=== PATIENT | female | born 1970 | race Caucasian/White ===

== ENCOUNTER → 2018-05-23 | Outpatient (CLI) | payer MEDICARE, MEDICAID ==
--- NOTE | 2018-05-23 21:16 | DIREP ---
PROCEDURE:XRAY FOOT MIN 3 VWS-LT COMPARISON:None. INDICATIONS:CELLULITIS OF THE LEFT LIMB FINDINGS: BONES:Normal. JOINTS:Normal. SOFT TISSUES:Normal. OTHER:No additional findings. CONCLUSION:No periostitis. No soft tissue gas. Dictated by: Chris Hess MD on 05/23/2018 at 09:02 PM
== END | disposition home or self-care (01) ==
LOC: RAD 20:14
PROVIDERS: ATTEND Nurse Practitioner Family
DX: L03.116 Cellulitis of left lower limb (principal); J44.1 Chronic obstructive pulmonary disease with (acute) exacerbation
CPT/HCPCS: 73630-LT

== ENCOUNTER 2019-01-24 18:04 | Emergency (ER) | payer MEDICARE, MEDICAID ==
[~2019-01-24] VITALS: Ht 170.2 cm; Wt 113.4 kg
[2019-01-24 18:30] VITALS: BP 130/61
--- NOTE | 2019-01-24 18:31 | NUR ---
ARRIVAL PATIENT ARRIVED TO ER 8 AMBULATORY ACCOMPANIED BY Flores BOSWELL RN. BEDSIDE MONITORS APPLIED. VITAL SIGNS STABLE. PATIENTS FATHER STATES WORRY OF A NERVOUS BREAKDOWN. PATIENT STATES THAT SHE DRANK 1/2 GALLON OF VODKA TODAY. SHE TOLD HER FATHER THAT SHE HAS SUICIDAL IDEATIONS. WHEN ASKED THE PATIENT STATES SHE DOESNT WANT TO ANWER THE QUESTIONS RIGHT NOW. BED IN LOW LOCKED POSITION SIDE RAILS X2.
--- NOTE | 2019-01-24 18:39 | ER.PDOC ---
General Chief Complaint: Requesting Medical Care Stated Complaint: GEN COMPLAINT Time seen by MD: 18:33 Source: patient Exam Limitations: no limitations History of Present Illness Initial Comments Nervous breakdown Timing/Duration: just prior to arrival Intent: Suicide Severity: moderate Related to: Sigificant Other Associated Symptoms: Depressed Mechanism: Will Not Answer Prior symptoms/Treatment: Similar symptoms previous Allergies: Coded Allergies: No Known Allergies (Unverified , 02/18/16) Home Meds Unable to Obtain Active Prescriptions or Reported Meds Past Medical History Medical History: COPD, other Surgical History: cholecystectomy, LMP (females 10-50): postmenopause Social History Smoking: less than 1 pack/day Alcohol Use: heavy Drug Use: none Reviewed Nursing Reviewed: Vital Signs, Abn. Noted Review of Systems All Other Systems: Reviewed and Negative Physical Exam General Appearance: Anxious EENT: No nystagmus, PERRLA, EOM's intact, NML ENT inspection, Pharynx nml, NML gag reflex Neck: Non-Tender, Full Range of Motion, Supple, Normal Inspection Respiratory: chest non-tender, lungs clear, normal breath sounds, no respiratory distress, no accessory muscle use Gastrointestinal: Normal Bowel Sounds, No Organomegaly, No Pulsatile Mass, Non Tender, Soft Extremities: Non-Tender, Normal Range of Motion, No Evidence of Trauma, No Edema Neurological/Psychiatric: Alert, Normal Mood/Affect, Calm, medical supervisor II-XII NML as Tested, Oriented x 3 Appearance/Memory/Insight: Appropriate Appearance, Appropriate Insight, Neat, No Memory Impairment Behavior/Eye Contact/Speech: Cooperative, Good Eye Contact, Normal Speech Thoughts/Hallucinations: Normal Thought Pattern, No Apparent Hallucination Skin: Normal Color, Warm/Dry Results/Orders Results/Orders Laboratory Tests Test 01/24/19 18:40 01/24/19 18:58 01/25/19 00:43 Urine Collection Type VOID Urine Color YELLOW (YELLOW) Urine Appearance HAZY (CLEAR) Urine Bilirubin NEGATIVE MG/DL (NEGATIVE) Urine Ketones NEGATIVE (NEGATIVE) Urine Specific [place] 1.015 (1.005-1.035) Urine pH 5 (5.0-6.0) Urine Protein 15 mg/dL (NEGATIVE) Urine Urobilinogen NORMAL (NEGATIVE) Urine Nitrate NEGATIVE (NEGATIVE) Urine Leukocyte Esterase NEGATIVE (NEGATIVE) Urine Blood 25 1+ (NEGATIVE) Urine RBC 0-2 RBC/HPF (NONE SEEN) Urine WBC 0-2 WBC/HPF (0-2) Urine Squamous Epithelial Cells MODERATE #/HPF (FEW) Urine Bacteria MODERATE (NONE SEEN) Urine Glucose NORMAL (NEGATIVE) Urine Opiates, Qualitative NEGATIVE ng/mL (CUT-OFF:300) Urine Methadone, Qualitative NEGATIVE ng/mL (CUT-OFF:300) Urine Amphetamine Qualitative POSITIVE ng/mL (CUTOFF:1000) Urine Barbiturates, Qualitative NEGATIVE ng/mL (CUT-OFF:200) Urine Phencyclidine Screen NEGATIVE ng/mL (CUT-OFF:25) Urine MDMA (Ecstasy), Qualitative NEGATIVE ng/mL (CUT-OFF:300) Urine Benzodiazepines Screen POSITIVE ng/mL (CUT-OFF:200) Urine Cocaine Qualitative NEGATIVE ng/mL (CUT-OFF:300) Ur Tetrahydrocannabinol (THC) Scrn NEGATIVE ng/mL (CUT-OFF:50) White Blood Count 4.0 10^3/uL (4.5-11.0) Red Blood Count 4.98 10^6/uL (4.00-5.20) Hemoglobin 16.1 g/dL (12.0-15.0) Hematocrit 49.8 % (36.0-46.0) Mean Corpuscular Volume 100.0 fL (78-100) Mean Corpuscular Hemoglobin 32.3 pg (26-34) Mean Corpuscular Hemoglobin Concent 32.3 g/dL (33-37) Red Cell Distribution Width 14.7 % (11.5-14.5) Platelet Count 124 10^3/uL (150-400) Mean Platelet Volume 8.3 fL (7.8-11.0) Neutrophils (%) (Auto) 52.8 % (41.0-85.0) Lymphocytes (%) (Auto) 35.1 % (24.0-44.0) Monocytes (%) (Auto) 10.0 % (5.0-12.0) Neutrophils # (Auto) 2.1 10^3/uL (1.8-7.7) Lymphocytes # (Auto) 1.4 10^3/uL (1.0-4.8) Monocytes # (Auto) 0.4 10^3/uL (0.3-0.8) Eosinophils % 1.8 % (0.0-5.0) Basophils % 0.3 % (0.0-0.2) Basophils # 0.0 10^3/uL (0.0-0.1) Eosinophil Count 0.1 10^3/uL (0.0-0.2) Sodium Level 142 mmol/L (132-145) Potassium Level 3.8 mmol/L (3.6-5.2) Chloride Level 104.0 mmol/L (96-109) Carbon Dioxide Level 31.5 mmol/L (20.0-32) Anion Gap 10.3 Blood Urea Nitrogen 5 mg/dL (7-18) Creatinine 0.59 mg/dL (0.59-1.40) Estimated GFR () 130.5 (>/=60) BUN/Creatinine Ratio 8.0 Glucose Level 120 mg/dL (70-110) Calcium Level 8.4 mg/dL (8.4-10.5) Total Bilirubin 0.3 mg/dL (0.2-1.0) Aspartate Amino Transf (AST/SGOT) 206 U/L (0-35) Alanine Aminotransferase (ALT/SGPT) 88 U/L (12-78) Alkaline Phosphatase 161 U/L (50-136) Total Creatine Kinase 89 U/L (26-192) Troponin I < 0.02 ng/mL (0.00-0.05) Total Protein 7.7 g/dL (6.4-8.2) Albumin 3.1 g/dL (3.4-5.0) Globulin 4.6 Human Chorionic Gonadotropin, Quant < 5 mIU/mL Salicylates Level < 2.8 mg/dL (2.8-20.0) Acetaminophen Level < 2 ug/mL (10-30) Serum Alcohol 243 mg/dL (-3) 67 mg/dL (-3) Administered Medications Medications (Trade) Dose Ordered Sig/Donta Route PRN Reason Start Time Stop Time Status Last Admin Dose Admin Lorazepam (Ativan) 2 mg STAT STAT PO 01/24/19 18:52 01/24/19 18:54 DC 01/24/19 19:01 Sodium Chloride 1,000 ml @ 1,200 mls/hr Q50M STAT IV 01/24/19 19:47 01/24/19 20:36 DC 01/24/19 20:02 Sodium Chloride 1,000 ml @ 1,200 mls/hr Q50M STAT IV 01/24/19 22:10 01/24/19 22:59 DC 01/24/19 22:13 Albuterol/ Ipratropium (Duoneb 0.5 Mg-3 Mg/3 ml Soln) 3 ml STAT STAT IH 01/24/19 22:18 01/24/19 22:19 DC 01/24/19 22:24 Sodium Chloride 1,000 ml @ 1,200 mls/hr Q50M STAT IV 01/24/19 22:58 01/24/19 23:47 DC 01/24/19 23:38 Albuterol/ Ipratropium (Duoneb 0.5 Mg-3 Mg/3 ml Soln) 3 ml STAT STAT IH 01/25/19 00:37 01/25/19 00:38 DC 01/25/19 01:00 Dexamethasone Sodium Phosphate (Decadron) 4 mg STAT STAT IH 01/25/19 00:37 01/25/19 00:38 DC 01/25/19 01:00 Lorazepam (Ativan) 2 mg STAT STAT IV 01/25/19 02:53 01/25/19 02:54 DC 01/25/19 03:03 Departure Time of Disposition: 03:52 Disposition: 65 XFER TO PSYCH HOSP/UNIT Impression: Primary Impression: Suicidal ideation Additional Impressions: Depressed Anxiety state Alcohol abuse Methamphetamine abuse UTI (urinary tract infection) Condition: Stable Referrals: PCP,UNKNOWN (PCP) PRIMARY CARE PROVIDER Additional Instructions: Cipro Scripts Unable to Obtain Active Prescriptions or Reported Meds Comments Patient medically cleared [facility] to [facility] Duration or Time Spent with Pa: 2 hours Problem Qualifiers Additional Impressions: Depressed Depression Type: unspecified Qualified Codes: F32.9 - Major depressive disorder, single episode, unspecified UTI (urinary tract infection) Urinary tract infection type: site unspecified Hematuria presence: without hematuria Qualified Codes: N39.0 - Urinary tract infection, site not specified TRUDY BANUELOS MD Jan 24, 2019 18:39 DIETER LEWIS MD Jan 25, 2019 00:56
[2019-01-24 18:46] LABS: APPEARANCE,URINE HAZY (CLEAR); BILIRUBIN,URINE NEGATIVE (NEGATIVE); UA COLOR YELLOW (YELLOW); UROBILINOGEN,URINE NORMAL (NEGATIVE)
--- NOTE | 2019-01-24 18:48 | PCM.EKG ---
[facility] Test Date: 2019-01-24 Test Time: 18:43:19 Pat Name: RICHAR VOGEL Department: Room: Gender: F Practice Lead: [place] : 1970 Requested By: TRUDY BANUELOS Order Number: [id number] Reading MD: Measurements Intervals [place] Rate: 114 P: 84 NM: 130 QRS: 116 QRSD: 72 T: 72 QT: 306 QTc: 421 Interpretive Statements Sinus tachycardia Otherwise normal ECG Compared to ECG 01/04/2018 18:20:03 Sinus rhythm no longer present Please click the below link to view image of tracing.
[2019-01-24] MEDS ORDERED: ATIVAN PO STA (18:52)
[2019-01-24] MEDS ORDERED: BENADRYL PO STA (18:52)
[2019-01-24] MEDS ORDERED: HALDOL PO STA (18:52)
[2019-01-24] MEDS ORDERED: ATIVAN ONE (18:55)
--- NOTE | 2019-01-24 19:00 | NUR ---
UPDATE PATIENT ANXIOUS AND CRYING ORDER FOR ATIVAN PO ORDERED.
[2019-01-24 19:13] LABS: BASOPHIL % 0.3 % (0.0-0.2); EOSINOPHIL # 0.1 10^3/uL (0.0-0.2); EOSINOPHIL % 1.8 % (0.0-5.0); HEMOGLOBIN 16.1 g/dL (12.0-15.0); LYMPHOCYTES # 1.4 10^3/uL (1.0-4.8); LYMPHOCYTES % 35.1 % (24.0-44.0); MEAN CELL HGB 32.3 pg (26-34); MEAN CELL HGB CONCENTRATION 32.3 g/dL (33-37); MEAN PLATELET VOLUME 8.3 fL (7.8-11.0); MONOCYTES # 0.4 10^3/uL (0.3-0.8); NEUTROPHIL # 2.1 10^3/uL (1.8-7.7); NEUTROPHILS % 52.8 % (41.0-85.0); PLATELET COUNT 124 10^3/uL (150-400); RED CELL DISTRIBUTION WIDTH 14.7 % (11.5-14.5)
[2019-01-24 19:36] LABS: ALANINE AMINOTRANSFERASE(ML) 88 U/L (12-78); ALKALINE PHOSPHATASE 161 U/L (50-136); ASPARTATE AMINO TRANSFERASE 206 U/L (0-35); CARBON DIOXIDE 31.5 mmol/L (20.0-32); GLUCOSE 120 mg/dL (70-110)
[2019-01-24] MEDS ORDERED: NS 1000ML 1,000 ML IV STA ×3 (19:47→22:58)
[2019-01-24] MEDS ORDERED: NS 1000ML 1,000 ML ONE ×3 (20:01→23:37)
[2019-01-24 20:05] LABS: CALCIUM 8.4 mg/dL (8.4-10.5)
--- NOTE | 2019-01-24 20:18 | NUR ---
Troponin Received call from Kandi in Lab. Pt troponin was rerun and is resulting less than 0.02. Dr. Flynn updated.
[2019-01-24 20:36] VITALS: BP 177/85
--- NOTE | 2019-01-24 21:01 | NUR ---
UPDATE FATHER AT BEDSIDE IV INFUSING WITHOUT COMPLICATION. PATIENT JUST FINISHED EATING A SANDWICH AND LAYING IN BED. REMAINS A LITTLE ANXIOUS AT TIMES. REFUSES TO WEAR BP CUFF AT THIS TIME. WILL WEAR O2 SAT MONITOR.
--- NOTE | 2019-01-24 22:00 | NUR ---
UPDATE PATIENT RESTING IN BED EYES CLOSED AND RR EVEN AND UNLABORED. CONTINUES TO WEAR O2 AT 2.5LPM PER NC. FATHER AT BEDSIDE. REFUSES TO WEAR BP CUFF AT THIS TIME BUT WILL WEAR O2 SAT MONITOR. 1ST LITER OF NS COMPLETED. NO COMPLICATIONS WITH IV SITE. WILL CONTINUE TO MONITOR.
--- NOTE | 2019-01-24 22:15 | NUR ---
UPDATE PATIENT STATES THAT SHE CANT BREATHE FATHER SAYS THAT SHE HAS ASTHMA AND SHE IS REQUESTING A BREATHING TX. PATIENT HR IS [address] LEWIS. SHE HAS TESTED POSITIVE FOR METHAMPHETAMINE SO DR. LEWIS SAYS THAT IS WHY HER HR IS ELEVATED. ORDER FOR BREATHING TX CALLED RT.
[2019-01-24] MEDS ORDERED: DUONEB 0.5 MG-3 MG/3 ML SOLN IH STA (22:18)
[2019-01-24] MEDS ORDERED: DUONEB 0.5 MG-3 MG/3 ML SOLN IH ONE (22:19)
[2019-01-25] MEDS ORDERED: DECADRON IH STA (00:37)
[2019-01-25] MEDS ORDERED: DUONEB 0.5 MG-3 MG/3 ML SOLN IH STA (00:37)
--- NOTE | 2019-01-25 00:45 | NUR ---
UPDATE PATIENT UP TO BATHROOM. BACK TO BED AND SHE REPORTS THAT SHE IS SOB. O2 ON AT 3 LPM PER NC. O2 SAT 91%. DR. LEWIS AT BEDSIDE. HE ORDERED BREATHING TX AND CHEST X RAY.
[2019-01-25] MEDS ORDERED: DUONEB 0.5 MG-3 MG/3 ML SOLN IH ONE (00:53)
[2019-01-25] MEDS ORDERED: DECADRON ONE (00:53)
--- NOTE | 2019-01-25 01:00 | NUR ---
RT RT AT BEDSIDE FOR BREATHING TX. DR. LEWIS WILL ORDER CHEST XRAY.
--- NOTE | 2019-01-25 01:25 | NUR ---
[facility] CALLED [facility] FOR CONSULT.
--- NOTE | 2019-01-25 01:33 | DIREP ---
PROCEDURE:CHEST 1 VIEW COMPARISON:[facility], CR, XRAY CHEST SINGLE VW, 01/04/2018, 06:17 PM. INDICATIONS:SOB FINDINGS: LUNGS/PLEURA:Mild interstitial prominence is similar to the previous study. No suspicious airspace consolidation, pleural effusion or pneumothorax is identified. VASCULATURE:Normal. Unremarkable pulmonary vasculature. CARDIAC:Normal. No cardiac silhouette abnormality or cardiomegaly. MEDIASTINUM:Normal. No visible mass or adenopathy. BONES:Degenerative changes of the shoulders and spine. OTHER:Negative. CONCLUSION:Stable chest without acute cardiopulmonary abnormality. Dictated by: Obed Robles M.D. on 01/25/2019 at 01:31 AM
--- NOTE | 2019-01-25 01:37 | NUR ---
SAUMYA RECEIVED CALL FROM SEBASTIÁN AT [facility] AND SHE WILL BE AVAILABLE FOR TELECONFERENCE IN 15 MIN.
--- NOTE | 2019-01-25 02:00 | NUR ---
[facility] PATIENT TAKEN TO TRIAGE FOR TELECONFERENCE WITH AN FROM [facility].
--- NOTE | 2019-01-25 02:13 | NUR ---
SAUMYA RECEIVED CALL FROM SEBASTIÁN FROM [facility] AND SHE WILL AUTHORIZE RS BED AND SEND PATIENT INFORMATION TO THE [facility].
--- NOTE | 2019-01-25 02:20 | NUR ---
UPDATE PATIENT IN ROOM VERY ANXIOUS AND RESTLESS IN ROOM. INFORMED DR. LEWIS AND NO NEW ORDERS AT THIS TIME.
--- NOTE | 2019-01-25 02:46 | NUR ---
UPDATE PATIENT VERY RESTLESS AND ANXIOUS SHE IS UNABLE TO STAY STILL AND IS SHAKEY. INFORMED DR. LEWIS AGAIN AND ORDER FOR ATIVAN 2MG IV GIVEN.
[2019-01-25] MEDS ORDERED: ATIVAN ONE (02:51)
[2019-01-25] MEDS ORDERED: ATIVAN IV STA (02:53)
--- NOTE | 2019-01-25 03:45 | NUR ---
UPDATE PATIENT RESTING IN BED EYES CLOSED RR EVEN AND UNLABORED. O2 SAT 97 PERCENT ON O2 AT 3.5 LPM PER NC. FATHER AT BEDSIDE.
[2019-01-25] MEDS ORDERED: CIPRO PO STA (03:55)
--- NOTE | 2019-01-25 04:08 | NUR ---
[facility] Called [facility] Office to have them send out speech language pathologist. Dispatch states that they will call me back.
[2019-01-25] MEDS ORDERED: CIPRO ONE (04:14)
[2019-01-25 04:18] VITALS: BP 178/98
--- NOTE | 2019-01-25 04:28 | NUR ---
KENIA CALLED [facility] TO SEE IF THEY WOULD ACCEPT PATIENT ON CONTINUOUS O2. SPOKE WITH RONNIE AND HE WILL CHECK AND CALL ME BACK.
--- NOTE | 2019-01-25 04:36 | NUR ---
KENIA RECEIVED RETURN CALL FROM RONNIE FROM [facility] AND THEY CAN ACCEPT PATIENT WITH CONTINUOUS O2. REPORT GIVEN AT THIS TIME AND WILL CALL BACK WHEN PATIENT DEPARTS.
--- NOTE | 2019-01-25 05:30 | NUR ---
UPDATE PATIENT RESTING IN BED RR EVEN AND UNLABORED. FATHER AT BEDSIDE. O2 ON AT 3LPM PER NC O2 SAT 93%. WILL CONTINUE TO MONITOR.
--- NOTE | 2019-01-25 06:06 | NUR ---
SHERIFF [employer]OUT MECHANIC CAME TO ORDER MAKE UP CLERK COURT P[employer]ERS TO HAVE [facility] JUDGE SIGN. HE IS GOING TO TAKE THEM TO CHARGER AND WILL BRING THEM BACK SO THAT PATIENT CAN BE TRANSPORTED TO [facility].
--- NOTE | 2019-01-25 06:32 | NUR ---
REPORT REPORT GIVEN TO SUN BROWN AND [facility]MING RELINQUISHED CARE.
--- NOTE | 2019-01-25 07:40 | NUR ---
[facility] CALLED TO [facility] FOR TRANSFER.
[2019-01-25 07:46] VITALS: BP 178/98
== END 2019-01-25 07:47 ==
LOC: ER 18:04
DX: F32.9 Major depressive disorder, single episode, unspecified (principal); N39.0 Urinary tract infection, site not specified; R31.9 Hematuria, unspecified; F10.10 Alcohol abuse, uncomplicated; F15.10 Other stimulant abuse, uncomplicated; F41.9 Anxiety disorder, unspecified; F17.210 Nicotine dependence, cigarettes, uncomplicated; J44.9 Chronic obstructive pulmonary disease, unspecified; Z90.49 Acquired absence of other specified parts of digestive tract
CPT/HCPCS: 36415 ×2; 71045; 80053; 80299 ×2; 80307 ×3; 80324 ×3; 81000; 82550; 84484; 84702; 85025; 87086; 93005; 94640 ×2; 96374; 99285; J1100; J2060; J7030 ×3; J7620 ×2

== ENCOUNTER 2020-01-17 11:57 | Emergency (ER) | payer MEDICARE, MEDICAID ==
[~2020-01-17] VITALS: Ht 170.2 cm; Wt 110.2 kg
[2020-01-17 11:57] VITALS: BP 92/35
[2020-01-17] MEDS ORDERED: QUELICIN IV ONE (11:58)
[2020-01-17] MEDS ORDERED: ZEMURON IV ONE (11:58)
[2020-01-17] MEDS ORDERED: LANOXIN ONE (12:05)
[2020-01-17] MEDS ORDERED: NEXTERONE ONE (12:05)
--- NOTE | 2020-01-17 12:08 | NUR ---
BP BP 92-35, AMIODORONE AND DIGOXIN ORDERED
[2020-01-17] MEDS ORDERED: NEXTERONE IV STA (12:09)
[2020-01-17] MEDS ORDERED: LANOXIN IV STA (12:09)
--- NOTE | 2020-01-17 12:13 | NUR ---
1ST INTUBATION INTUBATION 7.5 ETT, 22 CM TEETH
[2020-01-17 12:21] LABS: BASOPHIL % 0.1 % (0.0-0.2); EOSINOPHIL % 0.3 % (0.0-5.0); LYMPHOCYTES % 11.2 % (24.0-44.0); MEAN CORP HGB 33.4 pg (26-34); MONOCYTES # 0.5 10^3/uL (0.3-0.8); MONOCYTES % 4.2 % (5.0-12.0); NEUTROPHIL # 8.3 10^3/uL (1.8-7.7); NEUTROPHILS % 76.8 % (41.0-85.0); PLATELET COUNT 157 10^3/uL (150-400); RED CELL DISTRIBUTION WIDTH 15.5 % (11.5-14.5)
[2020-01-17] MEDS ORDERED: NARCAN IV PRN (12:30)
[2020-01-17] MEDS ORDERED: NEXTERONE 360 MG/200 ML BAG 200 ML IV ONE (12:34)
[2020-01-17 12:40] LABS: BILIRUBIN,URINE NEGATIVE (NEGATIVE)
--- NOTE | 2020-01-17 12:42 | NUR ---
BP BP 57/[address] LEWIS
--- NOTE | 2020-01-17 12:42 | NUR ---
ET TUBE ET TUBE PULLED, RESP BAGGING PT
[2020-01-17 12:45] LABS: UA COLOR YELLOW (YELLOW)
--- NOTE | 2020-01-17 12:45 | NUR ---
2ND INTUBATION 2ND INTUBATION ETT 7.5, 22 AT TEETH
--- NOTE | 2020-01-17 12:46 | DIREP ---
PROCEDURE:CHEST 1 VIEW COMPARISON:[facility], CR, XRAY CHEST SINGLE VW, 01/25/2019, 01:05 AM. INDICATIONS:unresponsive, et tube placement FINDINGS: LUNGS/PLEURA:No significant pulmonary parenchymal abnormalities. No effusions. VASCULATURE:Mildly increased pulmonary vasculature. CARDIAC:Normal. No cardiac silhouette abnormality or cardiomegaly. MEDIASTINUM:Normal. No visible mass or adenopathy. BONES:Normal. No fracture or visible bony lesion. OTHER:Distal tip of the ET tube is approximately 3 cm above the level of the larissa CONCLUSION: The ET tube projects approximately 3 cm above the larissa. Mild pulmonary vascular congestion without focal consolidation or pleural effusion Dictated by: Tere Callahan M.D. on 01/17/2020 at 12:44 PM
[2020-01-17 12:49] LABS: APPEARANCE,URINE CLOUDY (CLEAR)
--- NOTE | 2020-01-17 12:49 | NUR ---
ET TUBE ET TUBE PULLED, RESPIRATORY BAGGING.
[2020-01-17 12:51] LABS: CALCIUM 8.2 mg/dL (8.4-10.5)
--- NOTE | 2020-01-17 12:55 | NUR ---
Patient intubated first time by Emma Arriaga at 1213. Pt had color change on CO2 detector, good [place] BS and positive x-ray for intubation. Patient was then moved around and ETT was displaced at 1240. Sats began dropping, BBS no longer heard. ETT pulled and patient bagged until sats returned to normal. 2nd intubation attempt by Сергей was unsuccessful. 3rd intubation attempt by , intubation successful at 1255. CO2 color change noted, BBS noted, X-ray verified positive tube placement. Addendum: 01/17/20 at 1543 by Yaneli Perales RRT RT Amended: Links added.
--- NOTE | 2020-01-17 12:55 | NUR ---
3RD INTUBATION INTUBATED BY DR LEWIS W/ 8 ETT, 22 AT TEETH
--- NOTE | 2020-01-17 12:56 | NUR ---
critical lab LAC TIC ACID OF 5.1 CALLED BY NATANAEL, REPRTED TO EDP.
--- NOTE | 2020-01-17 12:56 | NUR ---
LEVOPHED LEVOPHED STOPPED BP 102/68 W/ INSTRUCTIONS TO START IF SYSTOLIC IS <90
--- NOTE | 2020-01-17 12:57 | NUR ---
LEVO LEVO AT 4MCG/MIN.
[2020-01-17 13:00] VITALS: BP 116/83
--- NOTE | 2020-01-17 13:07 | NUR ---
NG TUBE NG TUBE IN RT NARE
--- NOTE | 2020-01-17 13:09 | NUR ---
BP BP 86/54 LEVOPHED RESTARTED 4 MCG/MIN
--- NOTE | 2020-01-17 13:30 | NUR ---
PT TO CT WITH RT TO MAINTAIN AIRWAY.
[2020-01-17] MEDS ORDERED: NS 1000ML 3,000 ML ONE (13:45)
--- NOTE | 2020-01-17 13:48 | DIREP ---
PROCEDURE:CT HEAD OR BRAIN W/O CONTRAST COMPARISON:None. INDICATIONS:unconcious, unresponsive TECHNIQUE:CT images were created without intravenous contrast. FINDINGS: VENTRICLES:Diminutive appearance of the ventricles CEREBRUM:Preservation of the yang-white matter differentiation. Effacement of the sulci suspected throughout CEREBELLUM:Negative. BRAINSTEM:Negative. BASAL CISTERNS:Early effacement of the quadrigeminal plate cisterns. HEMORRHAGE:No MASS LESION:No ACUTE INFARCT:No SKULL:Normal. SINUSES:The patient is intubated. There is resultant mucosal thickening in the ethmoidal air cells OTHER:None CONCLUSION:Effacement of the sulci with slit-like ventricles and early effacement of the basilar cisterns, raising concern for diffuse anoxic changes. Confirmation with MRI would prove beneficial if the patient's clinical condition can tolerate This report was called by telephone at 1:47 pm on January 17, 2020 to Jose Eduardo Garcia Mba . Dictated by: Tere Callahan M.D. on 01/17/2020 at 01:43 PM
[2020-01-17] MEDS ORDERED: ROCEPHIN 1 GM in NS 100ML 100 ML IV STA (13:51)
--- NOTE | 2020-01-17 13:51 | DIREP ---
PROCEDURE:CHEST 1 VIEW COMPARISON:[facility], CR, XRAY CHEST SINGLE VW, 01/17/2020, 12:06 PM. INDICATIONS:REPOSITION ET TUBE FINDINGS: Portable frontal view of the chest is provided. LUNGS/PLEURA:The degree of aeration in the bilateral lungs is unchanged. No new infiltrates CARDIAC/MEDIASTINUM:The cardiomediastinal silhouette is stable. LINES: Endotracheal tube:The ETT appears unchanged, approximately 3 cm above the larissa Enteric tube: None Central line:None Other:Overlying precordial cardiac monitoring leads. CONCLUSION:Stable single-view of the chest Dictated by: Tere Callahan M.D. on 01/17/2020 at 01:47 PM
--- NOTE | 2020-01-17 13:52 | NUR ---
levo RESTARTED LEVO 4CCMG/MIN D/T BP BEING 69/38.
[2020-01-17] MEDS ORDERED: ROCEPHIN ONE (13:55)
[2020-01-17 14:00] VITALS: BP 119/74
--- NOTE | 2020-01-17 14:04 | NUR ---
16 G IV 16 GAUGE IV IN LEFT A/C BY JOZEF GARSIA
--- NOTE | 2020-01-17 14:05 | ER.PDOC ---
General Stated Complaint: RESUSCITATION CODE 99 Time seen by MD: 11:30 Source: EMS Exam Limitations: clinical condition History of Present Illness Initial Comments EMS called because patient was found on the floor unresponsive. By the time they arrived on scene, sherifs were doing CPR, they gave a dose of Epinephrine and got a pulse. They brought patient to the ED with a Doug airway. Unknown down time. Character of AMS: unresponsive Usually: orientedx3 Allergies: Coded Allergies: No Known Allergies (Unverified , 02/18/16) Home Meds Unable to Obtain Active Prescriptions or Reported Meds Past Medical History Medical History: COPD Surgical History: cholecystectomy, Social History Drug Use: none Review of Systems Constitutional: no symptoms reported Respiratory: see HPI Cardiovascular: no symptoms reported Gastrointestinal: no symptoms reported Psychiatric/Neurological: see HPI All Other Systems: Reviewed and Negative Physical Exam General Appearance: other (unresponsive with a doug airway) HEENT: no apparent trauma Neuro/Psych: other (unresponsive) Cranial Nerves: other (unresponsive) Peripheral Exam: other (unresponsive) Neck: other (unresponsive) Respiratory: breath sounds nml CVS: heart sounds nml, tachycardia, irregularly irregular Abdomen: other (full) Skin: other (skin tear left thigh) Intubation Intubation : Time of Intubation: 12:28 Blade: curved Tube Size (cm): 8.0 Lip Line (cm): 22 Medications: Rocuronium, Versed Breath Sounds after Intubation: equal Intubation Complications: no complications Post Intubation Xray: Yes Results/Orders Results/Orders Orders - DIETER LEWSI MD Cbc With Auto Diff (01/17/20 12:09) Comprehensive Metabolic Panel (01/17/20 12:09) Creatine Kinase (01/17/20 12:09) Creatine Kinase Mb (01/17/20 12:09) PT (01/17/20 12:09) Partial Thromboplastin Time. (01/17/20 12:09) Xr Chest 1v (01/17/20 12:09) Ct Head Wo Contrast (01/17/20 12:09) Urinalysis (01/17/20 12:09) Ekg-Routine (01/17/20 12:09) Troponin I (01/17/20 12:09) Drug Scrn Med W Confirmation (01/17/20 12:09) Alcohol(Ml) (01/17/20 12:09) Lactic Acid(Ml) (01/17/20 12:09) Naloxone Hcl (Narcan) (01/17/20 12:30) Amiodarone Hcl (Nexterone) (01/17/20 12:09) Digoxin (Lanoxin) (01/17/20 12:09) Blood Culture (01/17/20 12:09) Amiodarone In Dextrose,Iso-Osm (Nexteron (01/17/20 12:34) Xr Chest 1v (01/17/20 12:47) Urine Culture (01/17/20 12:25) Arterial Blood Gas (01/17/20 13:24) Rocuronium [place] (Zemuron) (01/17/20 11:58) Succinylcholine Chloride (Quelicin) (01/17/20 11:58) 0.9 % Sodium Chloride (Ns 1000ml) (01/17/20 13:45) Ceftriaxone Sodium (Rocephin) (01/17/20 13:51) Ceftriaxone Sodium (Rocephin) (01/17/20 13:55) Vancomycin Hcl (Vancomycin Hcl) (01/17/20 14:07) 0.9 % Sodium Chloride (Ns 250ml) (01/17/20 14:06) Vancomycin Hcl (Vancomycin Hcl) (01/17/20 14:07) Administered Medications Medications (Trade) Dose Ordered Sig/Donta Route PRN Reason Start Time Stop Time Status Last Admin Dose Admin Amiodarone HCl (Nexterone) 150 mg STAT STAT IV 01/17/20 12:09 01/17/20 12:14 DC 01/17/20 12:15 150 MG Digoxin (Lanoxin) 250 mcg STAT STAT IV 01/17/20 12:09 01/17/20 12:14 DC 01/17/20 12:13 250 MCG Naloxone HCl (Narcan) 0.4 mg STAT PRN IV SEDATION 01/17/20 12:30 02/16/20 12:29 01/17/20 12:06 0.4 MG Laboratory Tests Test 01/17/20 12:09 01/17/20 12:25 White Blood Count 10.8 10^3/uL (4.5-11.0) Red Blood Count 4.22 10^6/uL (4.00-5.20) Hemoglobin 14.1 g/dL (12.0-15.0) Hematocrit 48.2 % (36.0-46.0) H Mean Corpuscular Volume 114.2 fL (78-100) H Mean Corpuscular Hemoglobin 33.4 pg (26-34) Mean Corpuscular Hemoglobin Concent 29.3 g/dL (33-36.5) L Red Cell Distribution Width 15.5 % (11.5-14.5) H Platelet Count 157 10^3/uL (150-400) Mean Platelet Volume 9.7 fL (7.8-11.0) Neutrophils (%) (Auto) 76.8 % (41.0-85.0) Lymphocytes (%) (Auto) 11.2 % (24.0-44.0) L Monocytes (%) (Auto) 4.2 % (5.0-12.0) L Neutrophils # (Auto) 8.3 10^3/uL (1.8-7.7) H Lymphocytes # (Auto) 1.20 10^3/uL1 (1.0-4.8) Monocytes # (Auto) 0.5 10^3/uL (0.3-0.8) Absolute Immature Granulocyte (auto 0.80 10^3 u/L (0-2) Absolute Eosinophils (auto) 0.0 10^3/uL (0.0-0.2) Immature Granulocytes % 7.40 % (0.00-0.50) H Eosinophils % 0.3 % (0.0-5.0) Basophils % 0.1 % (0.0-0.2) Basophils # 0.0 10^3/uL (0.0-0.1) Prothrombin Time 12.2 SEC (9.4-11.5) H Prothrombin Time INR (Non-Therap) 1.2 Activated Partial Thromboplast Time 23.2 SEC (24.67-30.72) Urine Collection Type CATH Urine Color YELLOW (YELLOW) Urine Appearance CLOUDY (CLEAR) H Urine Bilirubin NEGATIVE MG/DL (NEGATIVE) Urine Ketones NEGATIVE (NEGATIVE) Urine Specific [place] 1.015 (1.005-1.035) Urine pH 7 (5.0-6.0) Urine Protein 100 mg/dL (NEGATIVE) H Urine Urobilinogen 4.0 (NEGATIVE) H Urine Nitrate POSITIVE (NEGATIVE) Urine Leukocyte Esterase 25 /uL TRACE (NEGATIVE) Urine Blood 25 1+ (NEGATIVE) H Urine RBC 0-2 RBC/HPF (NONE SEEN) Urine WBC 5-10 WBC/HPF (0-2) H Urine Squamous Epithelial Cells FEW #/HPF (FEW) Urine Bacteria MANY (NONE SEEN) H Urine Glucose NORMAL (NEGATIVE) Sodium Level 140 mmol/L (132-145) Potassium Level 4.9 mmol/L (3.6-5.2) Chloride Level 100.0 mmol/L (96-109) Carbon Dioxide Level 35.0 mmol/L (20.0-32) H Anion Gap 9.9 Blood Urea Nitrogen 22 mg/dL (7-18) H Creatinine 1.05 mg/dL (0.59-1.40) Estimated GFR () 66.9 (>/=60) Est GFR (CKD-EPI)(Non-Afr [place]) 55.3 (>/=60) BUN/Creatinine Ratio 20.0 Glucose Level 209 mg/dL (70-110) H Lactic Acid Level 5.1 mmol/L (0.5-1.9) *H Calcium Level 8.2 mg/dL (8.4-10.5) L Total Bilirubin 0.6 mg/dL (0.2-1.0) Aspartate Amino Transferase (AST) 124 U/L (0-35) H Alanine Aminotransferase (ALT) 76 U/L (12-78) Alkaline Phosphatase 141 U/L (50-136) H Total Creatine Kinase 247 U/L (26-192) H Creatine Kinase MB 9.4 ng/mL (0.5-3.6) H Troponin I 0.07 ng/mL (0.00-0.05) H Total Protein 7.8 g/dL (6.4-8.2) Albumin 2.7 g/dL (3.4-5.0) L Globulin 5.1 Urine Opiates Screen NEGATIVE (c/o300ng/mL) Urine Methadone Screen NEGATIVE (c/o300ng/mL) Urine Barbiturates Screen NEGATIVE (c/o200ng/mL) Urine Phencyclidine Screen NEGATIVE (c/o 25ng/mL) Ur Amphetamine/Methamphetamine PRESUMPTIVE POSITIVE Urine MDMA Screen (Ecstasy) NEGATIVE (c/o300ng/mL) Urine Benzodiazepines Screen NEGATIVE (c/o200ng/mL) Urine Cocaine Metabolite Screen NEGATIVE (c/o300ng/mL) Ur Tetrahydrocannabinol (THC) Scrn NEGATIVE (c/o 50ng/mL) Serum Alcohol < 3 mg/dL (0-50) Progress Progress Discussed with Dr. Stroud and patient will need higher level of care. CT head:Effacement of the sulci with slit-like ventricles and early effacement of the basilar cisterns, raising concern for diffuse anoxic changes. Confirmation with MRI would prove beneficial if the patient's clinical condition can tolerate . Course Sepsis Screening Results: Posi: POSITIVE SEPSIS RISK Duration or Total Time Spent w: 2 hours Vitals & review Data Laboratory Tests Test 01/17/20 12:09 01/17/20 12:25 White Blood Count 10.8 10^3/uL Red Blood Count 4.22 10^6/uL Hemoglobin 14.1 g/dL Hematocrit 48.2 % Mean Corpuscular Volume 114.2 fL Mean Corpuscular Hemoglobin 33.4 pg Mean Corpuscular Hemoglobin Concent 29.3 g/dL Red Cell Distribution Width 15.5 % Platelet Count 157 10^3/uL Mean Platelet Volume 9.7 fL Neutrophils (%) (Auto) 76.8 % Lymphocytes (%) (Auto) 11.2 % Monocytes (%) (Auto) 4.2 % Neutrophils # (Auto) 8.3 10^3/uL Lymphocytes # (Auto) 1.20 10^3/uL1 Monocytes # (Auto) 0.5 10^3/uL Absolute Immature Granulocyte (auto 0.80 10^3 u/L Absolute Eosinophils (auto) 0.0 10^3/uL Immature Granulocytes % 7.40 % Eosinophils % 0.3 % Basophils % 0.1 % Basophils # 0.0 10^3/uL Prothrombin Time 12.2 SEC Prothrombin Time INR (Non-Therap) 1.2 Activated Partial Thromboplast Time 23.2 SEC Urine Collection Type CATH Urine Color YELLOW Urine Appearance CLOUDY Urine Bilirubin NEGATIVE MG/DL Urine Ketones NEGATIVE Urine Specific [place] 1.015 Urine pH 7 Urine Protein 100 mg/dL Urine Urobilinogen 4.0 Urine Nitrate POSITIVE Urine Leukocyte Esterase 25 /uL TRACE Urine Blood 25 1+ Urine RBC 0-2 RBC/HPF Urine WBC 5-10 WBC/HPF Urine Squamous Epithelial Cells FEW #/HPF Urine Bacteria MANY Urine Glucose NORMAL Sodium Level 140 mmol/L Potassium Level 4.9 mmol/L Chloride Level 100.0 mmol/L Carbon Dioxide Level 35.0 mmol/L Anion Gap 9.9 Blood Urea Nitrogen 22 mg/dL Creatinine 1.05 mg/dL Estimated GFR () 66.9 Est GFR (CKD-EPI)(Non-Afr [place]) 55.3 BUN/Creatinine Ratio 20.0 Glucose Level 209 mg/dL Lactic Acid Level 5.1 mmol/L Calcium Level 8.2 mg/dL Total Bilirubin 0.6 mg/dL Aspartate Amino Transf (AST/SGOT) 124 U/L Alanine Aminotransferase (ALT/SGPT) 76 U/L Alkaline Phosphatase 141 U/L Total Creatine Kinase 247 U/L Creatine Kinase MB 9.4 ng/mL Troponin I 0.07 ng/mL Total Protein 7.8 g/dL Albumin 2.7 g/dL Globulin 5.1 Urine Opiates Screen NEGATIVE Urine Methadone Screen NEGATIVE Urine Barbiturates Screen NEGATIVE Urine Phencyclidine Screen NEGATIVE Ur Amphetamine/Methamphetamine PRESUMPTIVE POSITIVE Urine MDMA Screen (Ecstasy) NEGATIVE Urine Benzodiazepines Screen NEGATIVE Urine Cocaine Metabolite Screen NEGATIVE Ur Tetrahydrocannabinol (THC) Scrn NEGATIVE Serum Alcohol < 3 mg/dL Current Medications Medications (Trade) Dose Ordered Sig/Donta PRN Reason Start Time Stop Time Status Last Admin Ceftriaxone Sodium 1 gm/ Sodium Chloride 100 ml @ 100 mls/hr STAT STAT 01/17/20 13:51 01/17/20 14:50 Naloxone HCl (Narcan) 0.4 mg STAT PRN SEDATION 01/17/20 12:30 02/16/20 12:29 01/17/20 12:06 Vancomycin HCl 1 gm/Sodium Chloride 250 ml @ 175 mls/hr STAT STAT 01/17/20 14:07 01/17/20 15:32 UNV Sepsis Infection Criteria Pres: None Departure Time of Disposition: 14:24 Disposition: 05 DISCH/XFER OTHER Impression: Primary Impression: Altered mental status, unspecified Additional Impressions: Respiratory failure, acute UTI (urinary tract infection) Anoxic brain injury Condition: Critical Referrals: PCP,UNKNOWN (PCP) PRIMARY CARE PROVIDER Scripts Unable to Obtain Active Prescriptions or Reported Meds Duration or Time Spent with Pa: 120 mins Critical Care Note Total Time (mins): 120 Problem Qualifiers Primary Impression: Altered mental status, unspecified Altered mental status type: unspecified Qualified Codes: R41.82 - Altered mental status, unspecified Additional Impressions: Respiratory failure, acute Respiratory failure complication: unspecified whether with hypoxia or hypercapnia Qualified Codes: J96.00 - Acute respiratory failure, unspe cified whether with hypoxia or hypercapnia UTI (urinary tract infection) Urinary tract infection type: site unspecified Hematuria presence: with hematuria Qualified Codes: N39.0 - Urinary tract infection, site not specified; R31.9 - Hematuria, unspecified DIETER LEWIS MD Jan 17, 2020 14:05
[2020-01-17] MEDS ORDERED: NS 250ML 250 ML IV ONE ×2 (14:06→16:41)
[2020-01-17] MEDS ORDERED: VANCOMYCIN HCL 1 GM in NS 250ML 250 ML IV STA (14:07)
[2020-01-17] MEDS ORDERED: VANCOMYCIN HCL 1 GM ONE (14:07)
--- NOTE | 2020-01-17 14:22 | NUR ---
PHONE CALL RECEIVED CALL FROM SHERIFF RIMMA MCELROY. TRANS TO DR LEWIS
[2020-01-17] MEDS ORDERED: NS 1000ML 1,000 ML IV STA (14:29)
[2020-01-17] MEDS ORDERED: VERSED IV STA (14:29)
[2020-01-17] MEDS ORDERED: NEXTERONE 360 MG/200 ML BAG 200 ML IV STA (14:29)
[2020-01-17] MEDS ORDERED: LEVOPHED 8 MG in NS 250ML 250 ML IV STA (14:29)
[2020-01-17] MEDS ORDERED: ZEMURON IV STA (14:29)
[2020-01-17 14:33] LABS: ABG PH 7.231 (7.350-7.450); BE(B) 6.8 mmol/L (-2.0-2.0); HCO3act 38.2 mmol/L (22.0-26.0); pO2 57.6 mmHg (80.0-100.0)
[2020-01-17 14:36] VITALS: BP 92/35
--- NOTE | 2020-01-17 14:41 | NUR ---
LIFESTAR LIFESTAR TEAM ARRIVED TO TRANSPORT PT.
[2020-01-17 14:45] VITALS: BP 117/59
[2020-01-17 14:48] VITALS: BP 92/35
--- NOTE | 2020-01-17 15:03 | NUR ---
REPORT REPORT GIVEN TO LIFESTAR.
--- NOTE | 2020-01-17 15:25 | PCM.EKG ---
[facility] Test Date: 2020-01-17 Test Time: 11:57:07 Pat Name: RICHAR VOGEL Department: Room: Gender: F Electronic Intelligence Officer: caprice : 1970 Requested By: DIETER LEWIS Order Number: [id number] Reading MD: Dieter LEWIS Measurements Intervals [place] Rate: 150 P: NE: QRS: 94 QRSD: 90 T: -43 QT: 289 QTc: 457 Interpretive Statements Age not entered, assumed to be 48 years old for purpose of ECG interpretation Atrial fibrillation Borderline right axis deviation Borderline repolarization abnormality Baseline wander in lead(s) V1 Compared to ECG 01/24/2019 18:43:19 Sinus tachycardia no longer present Electronically Signed On 01-20-2020 23:47:05 RESEARCH PHYSICIST by Dieter LEWIS Please click the below link to view image of tracing.
--- NOTE | 2020-01-17 15:40 | NUR ---
REPORT REPORT CALLED TO EMILY AT [facility], ALSO SPOKE W/ BRAULIO GARSIA
--- NOTE | 2020-01-17 15:44 | NUR ---
patient arrived to ER at 1157 with danuta airway in. Patient unconscious and unresponsive. additional Iv's and medications started. Patient's danuta airway removed at 1212, successfully intubated at 1213, pt accidently extubated at 1242, 2nd attempt at 1245, 3rd attempt and patient successfully intubated at 1255. ETT secured and verified by BS, ETCo2 color change and x-ray. Patient taken to CT. Patient placed on vent at 1400 Addendum: 01/17/20 at 1550 by Yaneli Perales RRT RT Amended: Links added.
[2020-01-17] MEDS ORDERED: LEVOPHED ONE (16:41)
== END 2020-01-17 15:25 | disposition short-term general hospital (02) ==
LOC: EDBD 11:57 → ER 11:57
DX: J96.00 Acute respiratory failure, unspecified whether with hypoxia or hypercapnia (principal); J44.9 Chronic obstructive pulmonary disease, unspecified; G93.1 Anoxic brain damage, not elsewhere classified; N39.0 Urinary tract infection, site not specified; R79.1 Abnormal coagulation profile; Z79.899 Other long term (current) drug therapy; Z90.49 Acquired absence of other specified parts of digestive tract
CPT/HCPCS: 31500; 36415; 36600; 70450; 71045 ×2; 80053; 80307; 80320; 81000; 82550; 82553; 82803; 83605; 84484; 85025; 85610; 85730; 87040 ×2; 87077; 87086; 87186; 93005; 96365; 96367; 96368; 96375; 99291; 99292; J0282; J0330; J0696; J1160; J3370; J3490; J7030; J7050 ×4; 80324; 92950